=== PATIENT | female | born 2000 | race Caucasian/White ===

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

== ENCOUNTER 2020-11-07 12:06 | Observation (INO) ==
[2020-11-07] MEDS ORDERED: Famotidine IV 10 MG/ML 2 ml VIAL (20 mg) ONE (12:22)
[2020-11-07] MEDS ORDERED: diPHENhydraMINE IV 50 MG/ML 1 ml VIAL (BENADRYL) IV ONE (12:22)
[2020-11-07] MEDS ORDERED: Famotidine IV 10 MG/ML 2 ml VIAL (20 mg) IV SLOW PU ONE (12:22)
[2020-11-07 13:46] LABS: ABS Lymphocytes 1.4 10^3/ul (1.0-4.8); ABS Monocytes 0.3 10^3/ul (0-0.8); ABS Neutrophils 12.3 10^3/ul (1.5-7.7); Hematocrit 40 % (35-47); Hemoglobin 13.4 g/dL (12.0-16.0); Lymphocyte % 9.9 %; Mean Corpuscular HGB Conc 34 g/dL (31-36); Mean Corpuscular Hemoglobin 32 pg (27-31); Mean Corpuscular Volume 93 fL (80-97); Mean Platelet Volume 8.1 fL (7.4-10.4); Platelet Count 376 10^3/uL (150-450); Red Blood Count 4.23 10^6 /uL (3.70-4.87); Red Cell Distribution Width 13 % (10-15)
[2020-11-07 14:02] LABS: ALT 17 U/L (7-52); AST 15 U/L (13-39); Albumin 4.6 g/dL (3.2-5.2); Albumin/Globulin Ratio 1.5 (1-3); Alkaline Phosphatase 38 U/L (35-149); Anion Gap 9 mmol/L (2-11); Blood Urea Nitrogen 9 mg/dL (6-24); CO2 Carbon Dioxide 23 mmol/L (22-32); Calcium 9.9 mg/dL (8.6-10.3); Chloride 105 mmol/L (101-111); Glucose 163 mg/dL (70-100); Potassium 3.3 mmol/L (3.5-5.0); Sodium 137 mmol/L (135-145); Total Protein 7.6 g/dL (6.4-8.9)
[2020-11-07] MEDS ORDERED: diPHENhydraMINE IV 50 MG/ML 1 ml VIAL (BENADRYL) IV PRN ×2 (14:10→14:27)
[2020-11-07] MEDS ORDERED: Levalbuterol HFA INHALER MDI INH PRN (14:11)
[2020-11-07] MEDS ORDERED: Albuterol 2.5mg/3 ml (0.083%) NEB.SOLN INH PRN (14:11)
[2020-11-07] MEDS ORDERED: methylPREDNISolone 125 mg 2 ML VIAL IM SCH (16:00)
[2020-11-07] MEDS ORDERED: Potassium Chlor 20 meq TAB.ER PO ONE (16:51)
[2020-11-07] MEDS: methylPREDNISolone 125 mg 2 ML VIAL IV SCH (17:01)
[2020-11-07 18:10] LABS: HCG Pregnancy < 0.60 mIU/mL
[2020-11-07] MEDS: diPHENhydraMINE IV 50 MG/ML 1 ml VIAL (BENADRYL) IV SCH (18:11)
[2020-11-07] MEDS ORDERED: NORETHINDRONE E ESTRADIOL IRON PO SCH (18:20)
[2020-11-07] MEDS: Famotidine IV 10 MG/ML 2 ml VIAL (20 mg) IV SLOW PU SCH (21:00)
[2020-11-08] MEDS: methylPREDNISolone 125 mg 2 ML VIAL IV SCH ×2 (00:18→08:10)
[2020-11-08] MEDS: diPHENhydraMINE IV 50 MG/ML 1 ml VIAL (BENADRYL) IV SCH ×2 (00:18→05:32)
[2020-11-08] MEDS: Mometasone/Formoter 200/5 MDI INH SCH ×2 (01:20→07:44)
[2020-11-08 05:46] LABS: ABS Lymphocytes 0.9 10^3/ul (1.0-4.8); ABS Monocytes 0.1 10^3/ul (0-0.8); ABS Neutrophils 9.3 10^3/ul (1.5-7.7); Hematocrit 39 % (35-47); Hemoglobin 13.8 g/dL (12.0-16.0); Lymphocyte % 8.7 %; Mean Corpuscular HGB Conc 35 g/dL (31-36); Mean Corpuscular Hemoglobin 32 pg (27-31); Mean Corpuscular Volume 93 fL (80-97); Mean Platelet Volume 8.5 fL (7.4-10.4); Platelet Count 304 10^3/uL (150-450); Red Blood Count 4.26 10^6 /uL (3.70-4.87); Red Cell Distribution Width 13 % (10-15); White Blood Count 10.3 10^3/uL (3.5-10.8)
[2020-11-08 06:03] LABS: EGFR Non-African American 101.6 (>60); Magnesium 1.9 mg/dL (1.9-2.7); Potassium 4.3 mmol/L (3.5-5.0)
[2020-11-08] MEDS ORDERED: Magnesium Sulfate IV 1GM/100ML 1 GM/100 ML BAG IV ONE (07:15)
[2020-11-08 07:25] LABS: Phosphorus 4.6 mg/dL (2.5-5.0)
[2020-11-08] MEDS: Famotidine IV 10 MG/ML 2 ml VIAL (20 mg) IV SLOW PU SCH (08:09)
[2020-11-08] MEDS ORDERED: BECLOMETHASONE DIPROPIONATE INTRANASAL SCH (09:00)
[2020-11-08] MEDS: diPHENhydraMINE 25 mg TAB PO SCH ×4 (11:24→23:00)
[2020-11-08] MEDS ORDERED: NORETHINDRONE E ESTRADIOL IRON PO SCH (18:00)
[2020-11-09] MEDS: diPHENhydraMINE 25 mg TAB PO SCH ×2 (02:11→08:33)
[2020-11-09] MEDS: Mometasone/Formoter 200/5 MDI INH SCH ×2 (07:35→08:43)
[2020-11-09 08:02] VITALS: BP 104/64
[2020-11-09] MEDS ORDERED: BECLOMETHASONE DIPROPIONATE INTRANASAL SCH (09:00)
== END 2020-11-09 10:52 | disposition home or self-care (01) ==
LOC: ICU 12:06 → ED 12:06 → INTOOBSV 14:07 → OBSVTOIN 14:07 → ICU 15:54 → MEDTELE 11-08 12:33
PROVIDERS: ADMIT Internal Medicine; ATTEND Hospitalist